=== PATIENT | male | born 1975 | race African-American/Black ===

== ENCOUNTER 2022-09-06 07:08 | Day surgery (SDC) | payer BC ==
--- NOTE | 2022-09-05 15:23 | EKG ---
Test Date: 2022-09-04 Test Time: 15:29:05 Spouting Installer: WES MEASUREMENT RESULTS: Intervals: Rate: 72 TN: 152 QRSD: 86 QT: 334 QTc: 365 [place]: P: 50 TN: 152 QRS: 36 T: -40 INTERPRETIVE STATEMENTS: Normal sinus rhythm T wave abnormality, consider inferolateral ischemia Abnormal ECG No previous ECG available for comparison Electronically Signed On 09-05-22 15:21:10 MAIL ROOM CLERK by Corey Guadalupe
[2022-09-06] MEDS ORDERED: NA CHLORIDE 0.9% 1,000 ML ONE ×2 (07:33→10:07)
[2022-09-06 07:58] LABS: Potassium 4.1 mmol/L (3.5-5.1)
[2022-09-06] MEDS ORDERED: FENTANYL CITR 100 MCG/2 ML ONE ×2 (08:08→09:45)
[2022-09-06] MEDS ORDERED: propofoL 200 MG/20 ML VIAL IV ONE (08:08)
[2022-09-06] MEDS ORDERED: MIDAZOLAM HCL 2 MG/2 ML INJ ONE (08:08)
[2022-09-06] MEDS ORDERED: LIDOCAINE 1.5% W/EPI AMP 5 ML ONE (08:11)
[2022-09-06] MEDS ORDERED: LIDOCAINE 2% MPF 5 ML VIAL ONE (08:12)
[2022-09-06] MEDS ORDERED: dexAMETHasone 10 MG/ML VIAL ONE (08:26)
[2022-09-06] MEDS ORDERED: Mastisol Adhesive Liq ONE ×4 (10:42→11:48)
--- NOTE | 2022-09-06 11:58 | P.OP ---
Industrial Pipefitter Journeyman: NONE,NONE Preoperative diagnosis: Left chronic sialoadenitis with salivary stone Postoperative diagnosis: same Primary procedure: left submandibular gland excision Anesthesia: general Estimated blood loss: 50ml Specimen: left submandibular gland with stone and level 1 lymph nodes Findings: reactive appearing level 1 lymph node, approx 1.5cm proximal stone Operative Technique: Patient presented with salivary obstruction and significant acute sialoadenitis which required multiple courses of oral antibiotics to resolve. Excision of the submandibular gland was discussed but deferred. Approximately 2 years later, the patient began to have recurrence of infections and after medical therapy he elected to proceed with surgery. Patient was brought to the operating room he was placed under general anesthesia via LMA. A shoulder roll was placed and the neck was extended and the head turned towards the right side for exposure of the left neck. The submandibular gland was palpated and the planned incision site was injected with 3 mL of 1.5% lidocaine with epinephrine. The neck was prepped in a sterile fashion and draped in preparation for salivary gland surgery. A 5 cm incision was made through the skin and subcutaneous tissues using Bovie electrocautery. The platysma was identified and carefully elevated. There was prominent fatty tissue and multiple moderately enlarged lymph nodes noted overlying the submandibular gland and securing areas of dissection. Decision was made to remove these lymph nodes as part of the surgical procedure. The tissues were carefully dissected using the LigaSure and blunt dissection anterior and posterior to the clump of lymph nodes. The facial vein was identified on the inferior aspect of this mass near the inferior border of the submandibular gland. The facial vein was clamped and ligated using silk sutures. The cluster of lymph nodes and fatty tissues was elevated off the anterior surface of the submandibular gland and a centimeter and inferior to superior direction. Careful dissection was then taken around the superior aspect in order to identify the marginal mandibular branch of the facial nerve. This branch was clearly identified and carefully traced in a posterior to anterior direction protecting the nerve and preventing direct visualized injury. The facial vein and facial artery were then identified at the superior aspect of the lymph node cluster and submandibular gland. These were subsequently clamped and ligated. This allowed for dissection of the fat and lymph node cluster from the surface of the submandibular gland. These were completely removed and then set aside to be sent with the final specimen. Overall the lymph nodes did appear reactive in nature rather than suspicious for malignancy/erinn metastasis. The inferior border of the submandibular gland proper was then identified and carefully dissected around its inferior pole. Dissection was taken around in a circumferential fashion tracing of the gland to its attachments including the submandibular duct. A large approximately 1.5 to 2 cm stone was palpated in the proximal portion of the duct and was manually expressed towards the gland. The mylohyoid muscle was identified and bluntly dissected from the superior anterior edge of the submandibular gland. Soft tissue attachments were divided. The base of submandibular duct was ligated using the LigaSure. Final soft tissue attachments were divided using the LigaSure and the specimen was removed. On the back table, the gland was carefully examined. There were no firmly palpated nodules or masses noted within the submandibular gland. A scalpel was used to incise through the proximal portion near the duct attachment revealing a large submandibular stone approximately 1.5 to 2 cm. The stone, gland, and lymph nodes were sent to pathology for permanent section analysis. The wound bed was carefully examined and there was no evidence of bleeding or oozing. All ligated vessels appeared secure. A 10 [place] round URI drain was placed through the lateral inferior portion of the skin flap. With creation of the drain incision, there was bleeding from the skin. Direct pressure was applied. The drain was inserted and secured using a 3-0 nylon suture. The area around the drain appeared to be hemostatic. Inspection of the wound cavity revealed hemostasis. The incision was closed in a layered fashion using 4-0 Vicryl sutures to approximate the platysma and subcutaneous tissues. The skin was then closed in the subcuticular fashion using 5-0 Monocryl. The drain was attached to the bulb and the patient was returned to care of anesthesia for awakening in the operating room. I was notified approximately 5 to 10 minutes later that the URI drain contained a greater than expected amount of blood and was asked to reassess the wound. The URI drain contained about 30 mL of fresh blood. The incision was noted to have mild oozing of blood and the area around the submandibular gland and surgical site appeared swollen. I elected to proceed with reexploration of the wound. The patient was reintubated and the surgical site was reprepped and draped in a sterile fashion. After all appropriate equipment was available the sutures were cut revealing a moderate amount of clot within the wound cavity direct pressure with packing was applied. The URI drain was removed. I noted moderate amount of bleeding from the drain site. Direct pressure was applied for approximately 5 minutes and small amount of cautery was applied at the skin edges of the drain site. This resulted in significant improvement in bleeding. The remainder of the wound was carefully explored, irrigated. Clot was removed. There was no evidence of a ctive bleeding from any of the previous likely deep vessels. There was a small amount of oozing noted deep in the recesses near the mylohyoid but sutures appeared intact. Portion of Surgicel was packed into these crevices and additional direct pressure was applied to the drain site. Final inspection was made and there was no evidence of active bleeding from the deeper portions of the wound or the drain site. The inferior skin flap had a some oozing along the skin edges which was treated with electrocautery. The wound was then reclosed using 4-0 Vicryl and subcuticular Monocryl. Direct pressure was applied to the site during emergence from anesthesia. After extubation from the LMA, minimal venous blood was noted within the URI drain. Patient was then transported to the recovery room in stable condition. Complications: Bleeding at drain site noted during emergence from anesthesia requiring re- exploration of wound and control of bleeding. Drain(s): URI drain Transferred to: Recovery Room Condition: Good
[2022-09-06] MEDS ORDERED: TRAMADOL HCL 50 MG TAB ONE (13:46)
[2022-09-06 15:48] VITALS: BP 127/98; TEMP 97.8; O2SAT 97
== END 2022-09-06 14:23 | disposition home or self-care (01) ==
LOC: OR 07:08
PROVIDERS: ATTEND Otolaryngology
PROC: 0CBH0ZZ Excision of Left Submaxillary Gland, Open Approach (ICD-10-PCS; principal; 2022-09-06 08:30)
DX: K11.23 Chronic sialoadenitis (principal); K11.5 Sialolithiasis
CPT/HCPCS: 93005; 80048; 36415; 82947 ×2; 88307; 42699; J2704; J2001; J2250; J3010 ×2; J1100; J7030 ×2; 88305